=== PATIENT | male | born 1990 | race African-American/Black ===

== ENCOUNTER 2017-08-14 12:33 | Day surgery (SDC) | payer OTHER ==
[2017-08-14] VITALS (9 sets, daily range): BP systolic 98–133; BP diastolic 52–88
[~2017-08-14] VITALS: Ht 177.8 cm; Wt 59.0 kg
--- NOTE | 2017-08-14 06:58 | Pre-Procedure Note/Attestation ---
Pre-Procedure Note/Attestation Complete Prior to Procedure Planned Procedure: left Procedure Narrative: left knee scope, medial meniscectomy Indications for Procedure Pre-Operative Diagnosis: left knee medial meniscus tear Attestation I attest that I discussed the nature of the procedure; its benefits; risks and complications; and alternatives (and the risks and benefits of such alternatives ), prior to the procedure, with the patient (or the patient's legal artist's representative). I attest that, if there was a reasonable possibility of needing a blood transfusion, the patient (or the patient's legal artist's representative) was given the [facility] standardized written summary, pursuant to the [place] Blood Safety Act ([place] Health and Safety Code # 1645, as amended). I attest that I re-evaluated the patient just prior to the surgery and that there has been no change in the patient's H&P, except as documented below: none Lyle Hardin MD Aug 14, 2017 06:58
[~2017-08-14 12:33] MED LIST: ceFAZolin sod 1 GM in D5W 110 ML IVP ONE; celeBREX 200mg Cap **SURGERY PATIENTS ONLY ORAL ONE; oxyCONTIN 20mg tab ORAL ONE
[2017-08-14] MEDS ORDERED: Morphine Sulfate 2mg/ml Inj IVP PRN (14:00)
[2017-08-14] MEDS ORDERED: Norco 5mg/325mg tab ORAL PRN ×2 (14:00→15:15)
[2017-08-14] MEDS ORDERED: D5 1/2NS 1,000 ML IV SCH (14:00)
[2017-08-14] MEDS ORDERED: Tylenol #3 tab (300mg/30mg) ORAL PRN (14:00)
[2017-08-14] MEDS ORDERED: celeBREX 200mg Cap **SURGERY PATIENTS ONLY ORAL ONE (14:02)
[2017-08-14] MEDS ORDERED: oxyCONTIN 20mg tab ORAL ONE (14:02)
[2017-08-14] MEDS ORDERED: Sodium Chloride 10ml vial INJ ONE (14:06)
[2017-08-14] MEDS ORDERED: Propofol 200mg/20ml IV ONE (14:06)
[2017-08-14] MEDS ORDERED: Lidocaine 1% MPF 10mg/ml 5ml ONE (14:06)
[2017-08-14] MEDS ORDERED: Dexamethasone 4mg/ml vial ONE (14:06)
[2017-08-14] MEDS ORDERED: Alfentanil 2ml Inj ONE (14:07)
[2017-08-14] MEDS ORDERED: LR 1000ml ONE (14:30)
[2017-08-14] MEDS ORDERED: Ropivacaine 5mg/ml Vial 30ml INJ ONE (14:51)
[2017-08-14] MEDS ORDERED: LR 1000ml 1,000 ML IVLG SCH (15:07)
--- NOTE | 2017-08-14 15:12 | Anethesia Preoperative Eval ---
Anesthesia Pre-op PMH/ROS General Date of Evaluation: Aug 14, 2017 Anesthesiologist: Shelbi ASA Score: ASA 2 Mallampati Score Class I : Soft palate, uvula, fauces, pillars visible Class II: Soft palate, uvula, fauces visible Class III: Soft palate, base of uvula visible Class IV: Only hard plate visible Mallampati Classification: Class II Surgeon: Wilfred Diagnosis: L Knee Pain Surgical Procedure: L Knee Arthroscopy Anesthesia History: none Family History: no anesthesia problems Allergies: Coded Allergies: No Known Allergies (Unverified , 08/08/17) Medications: see eMAR Past Medical History Pulmonary: Reports: asthma Neurologic/Psychiatric: Reports: depression/anxiety Anesthesia Pre-op Phys. Exam Physician Exam Last Vital Signs Date Time Temp Pulse Resp B/P (MAP) Pulse Ox O2 Delivery O2 Flow Rate FiO2 08/14/17 13:51 98.9 53 18 133/77 100 Room Air 98.9 Constitutional: NAD Neurologic: CN 2-12 intact Cardiovascular: RRR Respiratory: CTA Gastrointestinal: S/NT/ND Airway Exam Mallampati Score: Class II MO: full ROM: full Teeth: intact Anesthesia Pre-op A/P Risk Assessment & Plan Assessment: ASA 2 Plan: GA, BIS Status Change Before Surgery: No Pre-Antibiotics Dru Grams Ancef IV Given Within 1 Hr of Incision: Yes Time Given: 14:51 Hudson Mario MD Aug 14, 2017 15:12
[2017-08-14] MEDS ORDERED: LORazepam Inj 2mg/ml 1ml IV PRN (15:15)
[2017-08-14] MEDS ORDERED: DiphenhydrAMINE 50mg/ml Inj IVP PRN (15:15)
[2017-08-14] MEDS ORDERED: HYDROcodone/Acetamin 7.5/325 tab ORAL PRN (15:15)
[2017-08-14] MEDS ORDERED: Metoclopramide 10mg/2ml Inj IVP PRN (15:15)
[2017-08-14] MEDS ORDERED: Acetaminophen (Non formulary) 100 ML IV ONE (15:15)
[2017-08-14] MEDS ORDERED: Midazolam 2mg/2ml Inj IVP PRN (15:15)
[2017-08-14] MEDS ORDERED: oxyCODONE HCL/Acetaminophen 5/325mg ORAL PRN (15:15)
[2017-08-14] MEDS ORDERED: Hydromorphone 0.5mg/0.5ml inj IVP PRN (15:15)
[2017-08-14] MEDS ORDERED: Atropine Inj 1mg/10ml Syr IV PRN (15:15)
[2017-08-14] MEDS ORDERED: Labetalol 5mg/ml 20ml vial IV PRN (15:15)
[2017-08-14] MEDS ORDERED: Ketorolac 30mg Inj IV PRN ×2 (15:15)
[2017-08-14] MEDS ORDERED: fentaNYL 100 mcg/2 mL IV PRN (15:15)
--- NOTE | 2017-08-14 15:16 | Immediate Post-Op Evaluation ---
Immediate Post-Op Evalulation Immediate Post-Op Evalulation Procedure: L Knee Arthroscopy Date of Evaluation: Aug 14, 2017 Time of Evaluation: 16:00 IV Fluids: 300 LR Blood Products: 0 Estimated Blood Loss: 7 Urinary Output: 0 Blood Pressure Systolic: 98 Blood Pressure Diastolic: 52 Pulse Rate: 48 Respiratory Rate: 16 O2 Sat by Pulse Oximetry: 100 Temperature (Fahrenheit): 97.6 Pain Score (1-10): 2 Nausea: No Vomiting: No Complications 0 Patient Status: awake, reacts, patent, none Hydration Status: adequate Dru Grams Ancef IV Given Within 1 Hr of Incision: Yes Time Given: 14:51 Hudson Mario MD Aug 14, 2017 15:16
--- NOTE | 2017-08-14 15:17 | 48 Hour Post Anesthesia Eval ---
Post Anesthesia Evaluation Procedure: L Knee Arthroscopy Date of Evaluation: Aug 14, 2017 Time of Evaluation: 18:07 Blood Pressure Systolic: 104 0: 78 Pulse Rate: 63 Respiratory Rate: 18 Temperature (Fahrenheit): 97.6 O2 Sat by Pulse Oximetry: 100 Airway: patent Nausea: No Vomiting: No Pain Intensity: 2 Hydration Status: adequate Cardiopulmonary Status: Stable Mental Status/LOC: patient returned to baseline Follow-up Care/Observations: 0 Post-Anesthesia Complications: 0 Follow-up care needed: ready to discharge Hudson Mario MD Aug 14, 2017 15:17
--- NOTE | 2017-08-14 15:31 | Brief Operative Note ---
Immediate Post Operative Note Operative Note Chief Complaint: left knee pain Pre-op Diagnosis: left knee medial meniscus tear Procedure: left knee scope, resection of plica Post-op Diagnosis: no meniscus tear Surgeon: md satlin Accountant Machine Processing: marshall tang Anesthesiologist: md alexander Anesthesia: general Specimen: none Complications: none Condition: stable Fluids: ns Estimated Blood Loss: minimal Drains: none Implant(s) used?: No Asha Tang Aug 14, 2017 15:31
[2017-08-14] MEDS ORDERED: Naloxone 0.4mg/ml Inj ONE (15:36)
[2017-08-14] MEDS ORDERED: Flumazenil 0.1mg/ml 5ml Inj IV ONE (15:38)
--- NOTE | 2017-08-14 18:00 | Operative Note - Dictated ---
DATE OF OPERATION: 08/14/2017 PREOPERATIVE DIAGNOSIS: Left knee possible posterior horn of medial meniscus tear. POSTOPERATIVE DIAGNOSES: 1. Left knee significant scar tissue over the anterior fat pad causing patellofemoral impingement. 2. Left knee thickened medial plica shelf that was rubbing with medial femoral condyle. 3. Intact medial and lateral meniscus. PROCEDURE: 1. Left knee arthroscopy and extensive intra-articular shaving. 2. Left knee resection of scarred anterior fat pad with impingement of the medial patellofemoral area. 3. Left knee resection of thickened medial plica shelf rubbing with medial femoral condyle. SURGEON: Lyle Hardin M.D. SOAP PRESS FEEDER: Asha Obregon PA-C. Crib Tender was present during the actual operative portion of the case and was important and essential part of the operation. During the operation, the sales support assistant held and operated the arthroscopic camera for visualization, assisted by manipulating the leg to help with visualization, and helped with essential parts of the repair process as necessary such as operating surgical instruments under surgeon supervision, suture management, and wound closures. ANESTHESIOLOGIST: Dr. Mario. ANESTHESIA: LMA anesthesia. TOURNIQUET TIME: 35 minutes. ESTIMATED BLOOD LOSS: 20 mL. COMPLICATIONS: None. SURGICAL INDICATION: The patient is a 27-year-old male who sustained the above injury to his knee. The patient was treated non-operative initially, but this did not alleviate the patients symptoms. Therefore, after discussing all non-surgical and surgical options, and discussing all foreseeable risk and benefits of surgery, the patient opted for surgical treatment as described above. PATIENT POSITIONING: The patient was brought to the operating room table and placed supine. All pressure points were well padded. General anesthesia was induced and a well-padded tourniquet was placed on the thigh. The lateral post was placed and positioned to allow for opening of the medial compartment of the knee without placing pressure over the fibular head. The patients entire leg was prepped and draped in the usual sterile fashion. Time-out was performed and preop antibiotic was given and after exsanguinating the lower extremity, the tourniquet was inflated to 275 mmHg. EXAMINATION OF THE KNEE UNDER ANESTHESIA: Before prepping and draping the knee and while the patient was relaxed under general anesthesia, the knee was examined for ROM, and anterior and posterior, medial and lateral, posterolateral, and posteromedial instability. Pivot-shift testing was performed. There was no evidence of loss of motion or instability and the pivot-shift testing was negative. PORTAL PLACEMENT: The lateral portal was placed with the knee flexed to 90 degrees at the level of inferior border of the patella in line with the lateral border of the patella. A 0.5-cm skin incision was made with an #11 blade, and using a blunt obturator, the capsule was gently penetrated. Sterile saline solution was then infused inside the knee with the aid of a pump set at 35 mmHg pressure. Under direct visualization, placement of the medial portal was preliminarily judged using a spinal needle, and it was subsequently established using the same technique as the lateral portal. Care was given not to injure the cutaneous branches of the medial saphenous nerve or the subcutaneous veins. DIAGNOSTIC ARTHROSCOPY: The suprapatellar patellar pouch was visualized. There was extensive scar tissue in the suprapatellar pouch and in the fat pad distal to the suprapatellar pouch. The medial and lateral patellar facets and trochlear groove articular cartilage was visualized. These structures were intact and were devoid of any articular cartilage damage. The medial plica shelf and the corresponding medial femoral condyle articular cartilage were visualized. There was thickened medial plica shelf that was rubbing against the medial femoral condyle. The lateral gutter and the posterolateral corner of the knee were visualized. There were no loose bodies, and the popliteus tendon and other structures of the posterolateral corner of the knee were intact intra-articularly. At this point, the knee was placed in the [id number] position and the lateral compartment was entered. The lateral femoral condyle, lateral tibial plateau, and the anterior body and the posterior horn of the lateral meniscus were visualized and probed. The articular surfaces were intact and devoid of articular cartilage damage. The lateral meniscus was completely intact both on its undersurface and on the top. The knee was then placed at 90 degrees and the ACL and PCL were visualized and probed. The ACL was completely intact on visualization and probing, and it had excellent tension. The PCL was completely intact on visualization and probing and it had excellent tension. The medial compartment was then entered and the medial femoral condyle, medial tibial plateau, and the anterior body and the posterior horn of the medial meniscus were visualized and probed. The articular surfaces were intact and devoid of articular cartilage damage. The medial meniscus was completely intact both on its undersurface and on the top. The medial gutter was visualized. There was no evidence of defect or loose fragments. The scope was then brought back to the patellofemoral compartment. OPERATIVE ARTHROSCOPY: At this point, all loose debris and fragments were removed with the use of suction motorized shaver. Specific attention was given to assure all visible loose fragments were irrigated out of the knee joint with pump inflow and cannula outflow system. Attention was given to the thickened medial plica shelf. Using combination of sharonda and baskets, the thickened portion of synovectomy was removed and synovectomy was performed in this fashion. Chondroplasty of the kissing lesion? of the medial femoral condyle was performed to create a smooth surface. The knee was placed through ROM and there was no contact between the thickened plica shelf and the medial femoral condyle. CONDITION AT DISCHARGE FROM OPERATING ROOM: The knee was irrigated with copious amount of normal saline at the end of the procedure. The scope was removed and the water was drained. The skin edges were reapproximated and sterile dressing was applied. All lap count and instrument counts were correct. The patient tolerated the procedure well without complications and was taken to the recovery room in stable conditions. Lyle Hardin M.D. DR: Elvia JOB#: [id number] CC:
== END 2017-08-14 18:20 | disposition home or self-care (01) ==
LOC: SUR 12:33
DX: M25.862 Other specified joint disorders, left knee (principal); F32.9 Major depressive disorder, single episode, unspecified; F41.9 Anxiety disorder, unspecified
CPT/HCPCS: 29877; J0690; J1100; J2250; J2310; J2405; J2704; J2795; J3490; J7120; 94003; 94150